=== PATIENT | female | born 1955 | race Caucasian/White ===

== ENCOUNTER 2017-07-13 12:43 | Inpatient (IN) | payer MEDICARE, SELFPAY | END 2017-07-16 15:20 | disposition home health service (06) | DRG 470 | PROVIDERS: Admitting Provider Orthopaedic Surgery; Visit Provider Orthopaedic Surgery | DX: M17.12 Unilateral primary osteoarthritis, left knee (principal); E11.22 Type 2 diabetes mellitus with diabetic chronic kidney disease; I12.9 Hypertensive chronic kidney disease with stage 1 through stage 4 chronic kidney disease, or unspecified chronic kidney disease; N18.9 Chronic kidney disease, unspecified; E03.9 Hypothyroidism, unspecified | CPT/HCPCS: 27447; 36415; 73560; 80048; 81001; 82962; 85025; 96375; 97116; 97162; 97530; C1713; C1765; C1776; J0330; J2405 ==

== ENCOUNTER → 2017-08-27 12:18 | Outpatient (CLI) | payer MEDICARE, SELFPAY ==
--- NOTE | 2017-08-27 12:23 | XR_ITS ---
XR knee LT 2V HISTORY: ITS.REASON: postoperative total knee arthroplasty ORDERING PHYSICIAN: Dada Reyes MD PATIENT AGE: 62 years COMPARISON: 07/13/2017 FINDINGS: Status post total knee replacement with good alignment of the prosthesis and no evidence of orthopedic complications. Compared to the previous exam soft tissue gas has resolved. IMPRESSION: Status post total knee replacement with good alignment
== END ==
PROVIDERS: Visit Provider Orthopaedic Surgery
DX: Z48.89 Encounter for other specified surgical aftercare (principal)
CPT/HCPCS: 73560

== ENCOUNTER → 2017-10-08 12:17 | Outpatient (CLI) | payer MEDICARE, SELFPAY ==
--- NOTE | 2017-10-08 12:20 | XR_ITS ---
XR knee LT 2V HISTORY: Follow-up knee surgery ITS.REASON: postoperative LEFT TOTAL KNEE. ORDERING PHYSICIAN: Dada Reyes MD PATIENT AGE: 62 years COMPARISON: 08/27/2017 FINDINGS: Status post total left knee replacement with good alignment and no evidence of orthopedic complication. IMPRESSION: Status post total knee arthroplasty with good alignment
--- NOTE | 2017-10-08 14:17 | NVE_ITS ---
Venous Exam Indications: 729.5 Pain in limb. 729.81 Swelling of limb. IMPRESSIONS 1. Normal study. 2. No evidence of deep or superficial vein thrombosis involving the right lower extremity and left lower extremity 3. Incidental findings: Minimalamount of fluid collection around the knee cap. Complete lower extremity venous duplex evaluation. Doppler flow study including spectral analysis, color and casarez scale imaging. Location: Vascular laboratory. Patient status: Outpatient. Tables: Venous flow and imaging: + +-------+ + Location Overall Flow properties + +-------+ + Right common femoral Patent Normal phasicity; spontaneous; normal augmentation; compressible + +-------+ + Right saphenofemoral junction Patent Compressible + +-------+ + Right profunda femoral Patent Compressible + +-------+ + Right femoral Patent Normal phasicity; spontaneous; normal augmentation; compressible; no reflux + +-------+ + Right greater saphenous Patent Normal phasicity; spontaneous; normal augmentation; compressible + +-------+ + Right popliteal Patent Normal phasicity; spontaneous; normal augmentation; compressible + +-------+ + Right posterior tibial Patent Compressible + +-------+ + Right peroneal Patent Compressible + +-------+ + Right gastrocnemius Patent Compressible + +-------+ + Right soleal Patent Compressible + +-------+ + Left common femoral Patent Normal phasicity; spontaneous; normal augmentation; compressible + +-------+ + Left saphenofemoral junction Patent Compressible + +-------+ + Left profunda femoral Patent Compressible + +-------+ + Left femoral Patent Normal phasicity; spontaneous; normal augmentation; compressible + +-------+ + Left greater saphenous Patent Normal phasicity; spontaneous; normal augmentation; compressible + +-------+ + Left popliteal Patent Normal phasicity; spontaneous;
== END ==
PROVIDERS: PCP Internal Medicine; Visit Provider Orthopaedic Surgery
DX: Z48.89 Encounter for other specified surgical aftercare (principal); M79.605 Pain in left leg
CPT/HCPCS: 73560; 93971

== ENCOUNTER → 2018-02-10 12:17 | Outpatient (CLI) | payer MEDICARE, SELFPAY ==
--- NOTE | 2018-02-10 12:22 | XR_ITS ---
XR knee RT 3V HISTORY: ITS.REASON: sp RIGHT knee replacement/ weightbearing views ORDERING PHYSICIAN: Dada Reyes MD PATIENT AGE: 62 years COMPARISON: 05/18/2017 FINDINGS: Status post total knee arthroplasty. Good alignment. No evidence of complications. IMPRESSION: No change status post total arthroplasty
--- NOTE | 2018-02-10 12:22 | XR_ITS ---
XR knee LT 3V HISTORY: ITS.REASON: sp LEFT knee replacement/ weightbearing ORDERING PHYSICIAN: Dada Reyes MD PATIENT AGE: 62 years COMPARISON: 10/08/2017 FINDINGS: Status post total knee replacement. Good alignment. No evidence of orthopedic complications with no significant change. IMPRESSION: Status post total knee arthroplasty. No change with no acute finding
== END ==
PROVIDERS: Visit Provider Orthopaedic Surgery
DX: Z96.652 Presence of left artificial knee joint (principal); Z96.651 Presence of right artificial knee joint
CPT/HCPCS: 73562